=== PATIENT | female | born 1995 | race Caucasian/White ===

== ENCOUNTER 2018-08-01 07:22 | Emergency (ER) | payer BC ==
[2018-08-01 07:36] VITALS: BP 147/88
--- NOTE | 2018-08-01 07:56 | UC ---
Throat Pain/Nasal Rusty HPI - HPI Summary HPI Summary: 22 yo female with sore throat x 1 day no f/c no TAVARES or myalgia - History of Current Complaint Chief Complaint: UCGeneralIllness Stated Complaint: ST Time Seen by Provider: 08/01/18 07:35 Hx Obtained From: Patient Hx Last Menstrual Period: 07/27/18 Onset/Duration: Gradual Onset, Lasting Hours Severity: Moderate Pain Intensity: 7 Pain Scale Used: 0-10 Numeric - Epiglottits Risk Factors Epiglottis Risk Factors: Negative - Allergies/Home Medications Allergies/Adverse Reactions: Allergies Allergy/AdvReac Type Severity Reaction Status Date / Time No Known Allergies Allergy Verified 08/01/18 07:34 PMH/Surg Hx/FS Hx/Imm Hx Previously Healthy: Yes - Surgical History Surgical History: Yes Surgery Procedure, Year, and Place: LEG SURGERY- mole removed. ACL SX RIGHT LEG - Family History Known Family History: Positive: Hypertension Negative: Cardiac Disease, Diabetes - Social History Alcohol Use: None Substance Use Type: None Smoking Status (MU): Never Smoked Tobacco - Immunization History Most Recent Influenza Vaccination: 2012 Vaccination Up to Date: Yes Review of Systems All Other Systems Reviewed And Are Negative: Yes Constitutional: Positive: Fatigue Skin: Positive: Negative Eyes: Positive: Negative ENT: Positive: Sore Throat Respiratory: Positive: Negative Cardiovascular: Positive: Negative Gastrointestinal: Positive: Negative Genitourinary: Positive: Negative Motor: Positive: Negative Neurovascular: Positive: Negative Musculoskeletal: Positive: Negative Neurological: Positive: Negative Psychological: Positive: Negative Physical Exam Triage Information Reviewed: Yes Appearance: Well-Appearing, No Pain Distress, Well-Nourished Vital Signs: Initial Vital Signs Temp 98.3 F 08/01/18 07:33 Pulse 70 08/01/18 07:33 Resp 18 08/01/18 07:33 BP 147/88 08/01/18 07:33 Pulse Ox 100 08/01/18 07:33 Vital Signs Reviewed: Yes Eyes: Positive: Conjunctiva Clear ENT: Positive: Hearing grossly normal, Pharyngeal erythema, TMs normal, Tonsillar swelling - mild, Uvula midline. Negative: Nasal congestion, Nasal drainage, Tonsillar exudate, Trismus, Muffled voice, Hoarse voice, Sinus tenderness Neck: Positive: Supple, Nontender, Enlarged Nodes @ - ant cerv Respiratory: Positive: Lungs clear, Normal breath sounds, No respiratory distress, No accessory muscle use Cardiovascular: Positive: RRR, No Murmur Musculoskeletal: Positive: ROM Intact, No Edema Neurological Exam: Normal Neurological: Positive: Alert Psychological Exam: Normal Skin Exam: Normal Throat Pain/Nasal Course/Dx - Differential Dx/Diagnosis Provider Diagnosis: Tonsillitis Discharge - Sign-Out/Discharge Documenting (check all that apply): Patient Departure All imaging exams completed and their final reports reviewed: No Studies - Discharge Plan Condition: Stable Disposition: HOME Patient Education Materials: Tonsillitis (ED) Referrals: Mauri Gusman [employer] PROFESSION[employer] [Primary Care Provider] - 4 Days (if not better) Additional Instructions: strep test (-) culture pending rest fluids tylenol or advil for pain or fever recheck in 4-5 days if not better - Billing Disposition and Condition Condition: STABLE Disposition: Home
== END 2018-08-01 08:02 | disposition home or self-care (01) ==
LOC: UCCORT 07:22
DX: J03.90 Acute tonsillitis, unspecified (principal)
CPT/HCPCS: 87070; 87651; 99211; G0463